=== PATIENT | male | born 1995 | race Caucasian/White ===

== ENCOUNTER 2022-11-06 08:59 | Outpatient (CLI) | payer OTHER, SELFPAY ==
--- NOTE | 2022-11-06 09:10 | ECG_ITS ---
Measurements Intervals [place] Rate: 70 P: 76 KS: 186 QRS: 68 QRSD: 99 T: 54 QT: 374 QTc: 405 Interpretive Statements SINUS RHYTHM POSSIBLE LEFT ATRIAL ENLARGEMENT [-0.1mV P-WAVE IN V1/V2] POSSIBLE RIGHT VENTRICULAR CONDUCTION DELAY [RSR (QR) IN V1/V2] ABNORMAL ECG NO PREVIOUS ECG AVAILABLE FOR COMPARISON Electronically Signed On 11-06-2022 9:20:05 CDT by Darryl Talavera M.D.
--- NOTE | 2022-11-07 12:07 | WPDHOLTEREM ---
Holter/Event Monitor Holter/Event Monitor Date of procedure: 11/06/22 Holter/Event Procedure: 24 Hr Holter Monitor Indications: Dizziness Conclusion: 1. 24 hour holter monitor on 11/06/22. 2. Underlying rhythm is sinus rhythm with sinus arrhythmia. HR range 47-145 bpm; average HR 80 bpm. HR at 145 bpm was at 15:22. 3. There are 2 premature supraventricular complexes. No supraventricular tachycardia. 4. No premature ventricular complexes. No ventricular tachycardia. 5. No sinoatrial or atrioventricular blocks. No significant pauses greater than 2 seconds. 6. No symptoms available for correlation.
== END 2022-11-06 09:00 | disposition home or self-care (01) ==
LOC: CHSCARD 09:03
PROVIDERS: PCP Family Medicine; Visit Provider Family Medicine
DX: R42 Dizziness and giddiness (principal); R55 Syncope and collapse; R94.31 Abnormal electrocardiogram [ECG] [EKG]
CPT/HCPCS: 93005; 93225; 93226